=== PATIENT | female | born 1950 | race Caucasian/White ===

== ENCOUNTER → 2018-01-12 00:20 | Outpatient (CLI) | payer MEDICARE, OTHER, SELFPAY ==
--- NOTE | 2018-01-12 14:20 | DI.REPORT_ITS ---
SYMPTOMS/DIAGNOSIS: SCREENING, POSTMENOPAUSAL, Z78.0 DEXA SCAN WITH HERMINIA: The HERMINIA image shows no evidence of compression fractures. The upper and mid thoracic vertebral bodies are not ideally seen. The bone mineral density measurements of the lumbar spine correspond to a total T score of -1.1, in the mildly osteopenic range. The bone mineral density measurements of the left hip correspond to a total T score of -0.3, in the normal range. The femoral neck T score is -1.0, at the lower limits of normal. The 10-year fracture risk of major osteoporotic fracture is calculated at 8.4%. The 10-year fracture risk of hip fracture is calculated at 0.8%. The bone mineral density measurements of the left forearm correspond to a total T score, as well as a T score of the distal third, of -0.5, consistent with osteopenia. IMPRESSION: Osteopenia of the lumbar spine and left forearm. Normal bone mineral density of the left hip.
[2018-01-12 14:57] LABS: Bilirubin Negative (Negative); Blood Trace-intact (Negative); Clarity Clear; Glucose Negative (Negative); Ketones Negative (Negative); Leukocyte Esterase Negative (Negative); Nitrite Negative (Negative); Urobilinogen 0.2 EU/dL (Up TO 0.2)
[2018-01-12 15:12] LABS: Bacteria Rare HPF (Negative); C & S Indicated? C&S Done As Ordered; Casts Negative LPF (Negative); Crystals Negative HPF (Negative); Epithelial Cells Rare HPF (Negative); Mucus Negative (Negative); Other Cells Rare Yeast (Negative); RBC 0-2 (0-2)
== END ==
PROVIDERS: Nurse Practitioner Gerontology; PCP Nurse Practitioner Family; Visit Provider Nurse Practitioner Family
DX: M85.88 Other specified disorders of bone density and structure, other site (principal); Z78.0 Asymptomatic menopausal state; N39.0 Urinary tract infection, site not specified; R30.0 Dysuria; N39.3 Stress incontinence (female) (male)
CPT/HCPCS: 77080; 81003; 81015; 87086

== ENCOUNTER → 2018-01-19 11:00 | Outpatient (CLI) | payer MEDICARE, OTHER, SELFPAY | PROVIDERS: PCP Nurse Practitioner Family; Visit Provider Nurse Practitioner Gerontology | DX: N32.81 Overactive bladder (principal); I10 Essential (primary) hypertension | CPT/HCPCS: 81003; 99213 ==

== ENCOUNTER → 2018-01-30 16:01 | Outpatient (REF) | payer MEDICARE, OTHER, SELFPAY ==
[2018-01-30 16:19] LABS: Bilirubin Negative (Negative); Blood Small (Negative); Clarity Cloudy; Glucose Negative (Negative); Ketones Negative (Negative); Leukocyte Esterase Moderate (Negative); Nitrite Negative (Negative); Specific Gravity 1.015 (1.005-1.025); Urobilinogen 0.2 EU/dL (Up TO 0.2); pH 6.5 (5-8)
[2018-01-30 16:28] LABS: C & S Indicated? C&S Done As Ordered; WBC >50 HPF (0-5)
== END ==
LOC: NCHCN 16:01
PROVIDERS: PCP Nurse Practitioner Family; Visit Provider Nurse Practitioner Gerontology
DX: N39.0 Urinary tract infection, site not specified (principal); R30.0 Dysuria
CPT/HCPCS: 87077; 81003; 81015; 87086; 87186

== ENCOUNTER 2018-02-09 10:30 | Outpatient (CLI) | payer MEDICARE, OTHER, SELFPAY | END 2018-02-09 10:31 | PROVIDERS: PCP Nurse Practitioner Family; Visit Provider Nurse Practitioner Gerontology | DX: N39.0 Urinary tract infection, site not specified (principal); N81.10 Cystocele, unspecified | CPT/HCPCS: 99213 ==

== ENCOUNTER → 2018-04-12 14:08 | Outpatient (BNVA) | payer MEDICARE, OTHER, SELFPAY | PROVIDERS: PCP Nurse Practitioner Family; Visit Provider Nurse Practitioner Gerontology | DX: N32.81 Overactive bladder (principal); I10 Essential (primary) hypertension | CPT/HCPCS: 99213 ==

== ENCOUNTER 2018-04-12 14:14 | Outpatient (REF) | payer MEDICARE, OTHER, SELFPAY ==
[2018-04-12 14:46] LABS: Bilirubin Negative (Negative); Blood Moderate (Negative); Clarity Cloudy; Glucose Negative (Negative); Ketones Negative (Negative); Leukocyte Esterase Large (Negative); Nitrite Positive (Negative); Urobilinogen 0.2 EU/dL (Up TO 0.2); pH 6.5 (5-8)
[2018-04-12 15:16] LABS: C & S Indicated? Yes; WBC >50 HPF (0-5)
== END 2018-04-12 14:34 ==
LOC: LBN 14:14
PROVIDERS: PCP Nurse Practitioner Family; Visit Provider Nurse Practitioner Gerontology
DX: N39.0 Urinary tract infection, site not specified (principal)
CPT/HCPCS: 87077; 81003; 81015; 87086; 87186

== ENCOUNTER 2018-05-18 15:47 | Outpatient (CLI) | payer MEDICARE, OTHER, SELFPAY ==
[2018-05-18 16:34] LABS: Bilirubin Negative (Negative); Blood Small (Negative); Clarity Cloudy; Glucose Negative (Negative); Ketones Negative (Negative); Leukocyte Esterase Moderate (Negative); Nitrite Negative (Negative); Specific Gravity 1.015 (1.005-1.025); Urobilinogen 0.2 EU/dL (Up TO 0.2)
[2018-05-18 16:51] LABS: C & S Indicated? Yes; WBC >50 HPF (0-5)
[2018-05-18 17:28] LABS: Sodium 136 mmol/L (136-145)
== END 2018-05-18 16:07 ==
PROVIDERS: PCP Nurse Practitioner Family; Visit Provider Nurse Practitioner Gerontology
DX: T50.905A Adverse effect of unspecified drugs, medicaments and biological substances, initial encounter (principal); N39.0 Urinary tract infection, site not specified
CPT/HCPCS: 36415; 87077; 81003; 81015; 84295; 87086; 87186

== ENCOUNTER → 2018-06-14 13:12 | Outpatient (BNVA) | payer MEDICARE, OTHER, SELFPAY | PROVIDERS: PCP Nurse Practitioner Family; Visit Provider Nurse Practitioner Gerontology | DX: N30.10 Interstitial cystitis (chronic) without hematuria (principal); I10 Essential (primary) hypertension | CPT/HCPCS: 81003; 99213 ==

== ENCOUNTER → 2018-08-16 08:12 | Outpatient (BNVA) | payer MEDICARE, OTHER, SELFPAY | PROVIDERS: PCP Nurse Practitioner Family; Visit Provider Nurse Practitioner Gerontology | DX: N30.10 Interstitial cystitis (chronic) without hematuria (principal); N32.81 Overactive bladder; Z87.440 Personal history of urinary (tract) infections; I10 Essential (primary) hypertension; Z87.42 Personal history of other diseases of the female genital tract | CPT/HCPCS: 99213 ==

== ENCOUNTER → 2018-10-23 10:22 | Outpatient (BNVA) | payer MEDICARE, OTHER, SELFPAY | PROVIDERS: PCP Nurse Practitioner Family; Visit Provider Nurse Practitioner Gerontology | DX: N30.10 Interstitial cystitis (chronic) without hematuria (principal); I10 Essential (primary) hypertension | CPT/HCPCS: 99213 ==

== ENCOUNTER 2019-01-11 09:29 | Outpatient (CLI) | payer MEDICARE, OTHER, SELFPAY ==
[2019-01-11 13:45] LABS: ALT 23 U/L (12-78); AST 19 U/L (15-37); Albumin 3.8 g/dL (3.4-5.0); Alkaline Phosphatase 74 U/L (46-116); Anion Gap 8.8 mmol/L (3-11); BUN 13 mg/dL (7-18); Bilirubin, Total 0.4 mg/dL (0.2-1.0); CO2 26.2 mmol/L (21.0-32.0); CREATININE 0.65 mg/dL (0.55-1.02); Calculated LDL 104 mg/dL; Chloride 103 mmol/L (98-107); Cholesterol 181 mg/dL (50-200); Glucose 95 mg/dL (70-100); HDL Cholesterol 51 mg/dL (40-60); Potassium 4.2 mmol/L (3.5-5.1); Sodium 138 mmol/L (136-145); Total Protein 6.5 g/dL (6.4-8.2); Triglyceride 130 mg/dL (30-150)
[2019-01-11 14:37] LABS: Hemoglobin A1C 5.6 % (4.5-6.2)
== END 2019-01-11 09:49 ==
PROVIDERS: PCP Nurse Practitioner Family; Visit Provider Nurse Practitioner Family
DX: E78.5 Hyperlipidemia, unspecified (principal); R73.09 Other abnormal glucose
CPT/HCPCS: 36415; 80053; 80061; 83721; 83036

== ENCOUNTER 2020-12-11 19:33 | Outpatient (REF) | payer MEDICARE, OTHER, SELFPAY | END 2020-12-11 19:34 | disposition home or self-care (01) | LOC: LBN 19:33 | PROVIDERS: Visit Provider Nurse Practitioner Family | DX: N39.0 Urinary tract infection, site not specified (principal) | CPT/HCPCS: 87077; 87086; 87186 ==

== ENCOUNTER 2020-12-22 21:22 | Outpatient (REF) | payer MEDICARE, OTHER, SELFPAY | END 2020-12-22 21:23 | disposition home or self-care (01) | LOC: LBN 21:22 | PROVIDERS: PCP Nurse Practitioner Family; Visit Provider Nurse Practitioner Family | DX: N39.0 Urinary tract infection, site not specified (principal) | CPT/HCPCS: 87077; 87086; 87186 ==